=== PATIENT | female | born 1955 | race Caucasian/White ===

== ENCOUNTER 2023-01-31 04:48 | Day surgery (SDC) | payer OTHER ==
[2023-01-26 13:27] VITALS: BMI 31.8
[2023-01-31 14:17] VITALS: TEMP 97
[2023-01-31 14:22] VITALS: RESP 18
[2023-01-31 14:50] VITALS: BP 135/56; PULSE 67
== END 2023-01-31 14:49 | disposition home or self-care (01) ==
LOC: JASU-ENDO 04:48
PROVIDERS: ATTEND Student in an Organized Health Care Education/Training Program
PROC: 0DJ08ZZ Inspection of Upper Intestinal Tract, Via Natural or Artificial Opening Endoscopic (ICD-10-PCS; principal; 2023-01-31 11:30)
DX: K29.50 Unspecified chronic gastritis without bleeding (principal)
CPT/HCPCS: 82962; 88305-TC; 88342-TC